=== PATIENT | female | born 1985 | race Two or more races ===

== ENCOUNTER 2017-05-15 08:18 | Emergency (ER) | payer MEDICAID ==
[~2017-05-15] VITALS: Ht 167.6 cm; Wt 57.0 kg
[2017-05-15] MEDS ORDERED: LORAZEPAM 1MG TABLET PO ONE (08:45)
[2017-05-15] MEDS ORDERED: ASPIRIN 81MG TABLET PO ONE (08:45)
[2017-05-15 08:59] LABS: BASOPHILS % 0.4 % (0.0-2.0); EOSINOPHILS % 1.8 % (0.0-5.0); HEMATOCRIT. 37.1 % (36.0-48.0); HEMOGLOBIN. 12.5 g/dL (12.0-16.0); LYMPHOCYTES % 28.2 % (20.0-50.0); MEAN CORPUSCULAR HEMOGLOBIN 26.5 pg (28.0-32.0); MEAN CORPUSCULAR VOLUME 78.4 fL (81.0-99.0); MEAN PLATELET VOLUME 7.5 fl (7.4-10.4); MONOCYTES % 6.9 % (2.0-8.0); NEUTROPHILS % 62.7 % (40.0-76.0); PLATELET 348 x1000/uL (130-400); RED BLOOD CELL COUNT 4.72 mill/uL (4.2-5.4); RED CELL DISTRIBUTION WIDTH 16.8 % (11.6-14.6)
[2017-05-15 09:17] LABS: CARBON DIOXIDE 24 mEq/L (21-32); CHLORIDE 105 mEq/L (98-107); TROPONIN I < 0.02 ng/mL (0.00-0.04)
[2017-05-15 09:20] LABS: D-DIMER 0.23 mg/L FEU (<0.50); PARTIAL THROMBOPLASTIN TIME 25.8 sec (23.4-31.0); PROTHROMBIN TIME 10.7 sec (9.4-11.6)
[2017-05-15 09:45] LABS: CLARITY URINE CLOUDY (CLEAR); COLOR URINE YELLOW (YELLOW); GLUCOSE URINE NEGATIVE (NEGATIVE); KETONES URINE NEGATIVE (NEGATIVE); LEUKOCYTE ESTERASE URINE 3+ (NEGATIVE); NITRITE URINE POSITIVE (NEGATIVE); OCCULT BLOOD URINE 3+ (NEGATIVE); PH URINE 6.5 (4.5-8.0); PROTEIN URINE TRACE (NEGATIVE); SPECIFIC GRAVITY URINE 1.023 (1.005-1.030); UROBILINOGEN URINE 0.2 E.U./dL (0.2-1.0)
[2017-05-15 10:25] LABS: *AMPHETAMINES SCREEN URINE PRESUMTIVE POSITIVE (NEGATIVE); *BARBITURATES SCREEN URINE NEGATIVE (NEGATIVE); *BENZODIAZEPINES SCREEN URINE NEGATIVE (NEGATIVE); *COCAINE SCREEN URINE NEGATIVE (NEGATIVE); CANNABINOID URINE SCREEN NEGATIVE (NEGATIVE); METHADONE URINE SCREEN NEGATIVE (NEGATIVE); OPIATES URINE SCREEN NEGATIVE (NEGATIVE); PHENCYCLIDINE URINE SCREEN NEGATIVE (NEGATIVE)
[2017-05-15 10:40] VITALS: BP 132/96
== END 2017-05-15 11:05 | disposition home or self-care (01) ==
LOC: ER 08:28
DX: F15.10 Other stimulant abuse, uncomplicated (principal); R07.89 Other chest pain; A59.9 Trichomoniasis, unspecified; E87.6 Hypokalemia; R00.0 Tachycardia, unspecified
CPT/HCPCS: 36415; 71010; 80053; 80305; 81001; 81025; 83690; 83880; 84484; 85025; 85379; 85610; 85730; 93005; 99285